=== PATIENT | female | born 1965 ===

== ENCOUNTER 2024-06-14 13:56 | Outpatient (CLI) | payer OTHER | END 2024-06-18 13:58 | disposition home or self-care (01) | LOC: SONOGRAMA 13:56 | PROVIDERS: ATTEND Pathology Anatomic Pathology & Clinical Pathology | DX: D34 Benign neoplasm of thyroid gland (principal); E07.89 Other specified disorders of thyroid; E07.9 Disorder of thyroid, unspecified ==